=== PATIENT | male | born 1980 | race Caucasian/White ===

== ENCOUNTER 2016-10-24 09:38 | Emergency (ER) | payer SELFPAY ==
--- NOTE | 2016-10-24 10:01 | ER Document Report ---
ED Medical Screen (RME) - General Stated Complaint: BACK/TOOTH PAIN Time seen by provider: 09:58 Mode of Arrival: Ambulatory Information source: Patient Notes: 36-year-old male presents to ED for pain in his upper and lower back after jumping out of the back of a truck yesterday. States she was hurting some yesterday but not as much as today. He states he has numbness down his right arm and feels like he has a "quinault" in the left side of his neck. He states he also has 3 or 4 painful teeth. I have greeted and performed a rapid initial assessment of this patient. A comprehensive ED assessment and evaluation of the patient, analysis of test results and completion of medical decision making process will be conducted by an additional ED providers. - Related Data Allergies/Adverse Reactions: Penicillins Allergy (Verified 10/24/16 09:57) sulfamethoxazole [From Bactrim] Allergy (Verified 10/24/16 09:57) trimethoprim [From Bactrim] Allergy (Verified 10/24/16 09:57)
[2016-10-24] MEDS ORDERED: OXYCODONE-ACETAMINOPHEN 5-325 MG TABLET PO ONE (10:38)
--- NOTE | 2016-10-24 12:02 | ER Document Report ---
HPI - HPI Patient complains to provider of: back pain, dental pain Onset: Other - Back pain started yesterday, dental pain 2 days Quality of pain: Sharp Pain Level: 5 Context: Patient presents complaining of dental pain for the past 2 days. Patient states that yesterday he jumped out of the lifted truck and yuan his back after he landed. Patient complains of back pain since then. Patient denies any fever, urinary symptoms, or weakness to his extremities. Patient denies any radiculopathy. Patient denies any IV drug use. Associated Symptoms: Other - Back pain, dental pain Exacerbated by: Movement, Walking Relieved by: Denies Similar symptoms previously: Yes Recently seen / treated by doctor: No - ROS ROS below otherwise negative: Yes Systems Reviewed and Negative: Yes All other systems reviewed and negative - CONSTITUTIONAL Constitutional: DENIES: Fever - EENT Notes: Dental pain - NEURO Neurology: DENIES: Weakness - CARDIOVASCULAR Cardiovascular: DENIES: Chest pain - GASTROINTESTINAL Gastrointestinal: DENIES: Nausea - URINARY Notes: No incontinence or retention - MUSCULOSKELETAL Musculoskeletal: REPORTS: Back Pain. DENIES: Extremity pain - DERM Skin Color: Normal Skin Problems: None Past Medical History - General Information source: Patient - Social History Smoking Status: Current Every Day Smoker Chew tobacco use (# tins/day): No Frequency of alcohol use: None Drug Abuse: None Lives with: Family Family History: Reviewed & Not Pertinent Patient has suicidal ideation: No Patient has homicidal ideation: No - Medical History Medical History: Negative Renal/ Medical History: Denies: Hx Peritoneal Dialysis Surgical Hx: Negative Vertical Provider Document - CONSTITUTIONAL Agree With Documented VS: Yes Exam Limitations: No Limitations General Appearance: WD/WN, No Apparent Distress Notes: PHYSICAL EXAMINATION: GENERAL: Well-appearing, well-nourished and in no acute distress. HEAD: Atraumatic, normocephalic. EYES: sclera clear, anicteric, conjunctiva are normal. ENT: nares patent, Moist mucous membranes. NECK: Normal range of motion, supple no lymphadenopathy LUNGS: respirations unlabored HEART: Regular rate and rhythm without murmurs EXTREMITIES: Normal range of motion, no pitting or edema. No cyanosis. Gait normal, pt ambulates without difficulty BACK: Thoracic midline tenderness T4-T10 area, lumbar midline tenderness no deformities or step-offs. No CVA tenderness. NEUROLOGICAL: Cranial nerves grossly intact. Normal speech, normal gait. No saddle anesthesia. PSYCH: Normal mood, normal affect. SKIN: Warm, Dry, normal turgor, no rashes or lesions noted. - INFECTION CONTROL TRAVEL OUTSIDE OF THE [place] IN LAST 30 DAYS: No - HEENT Mouth Diagram: 1 - Digital discoloration, no gingival swelling, no fracture 2 - Dental yellow-brown discoloration, tenderness, no fracture, no abscess, no sublingual or submental swelling - RESPIRATORY O2 Sat by Pulse Oximetry: 99 Course - Re-evaluation Re-evalutation: 10/24/16 12:03 Patient presents without any identification or Social Security number per patient access. - Vital Signs Vital signs: Temp Pulse Resp BP Pulse Ox 97.8 F 69 16 136/62 H 99 10/24/16 09:57 10/24/16 09:57 10/24/16 09:57 10/24/16 09:57 10/24/16 09:57 - Diagnostic Test Radiology reviewed: Reports reviewed Discharge - Discharge Clinical Impression: Arthritis, Pain, dental Back strain Qualifiers: Encounter type: initial encounter Qualified Code(s): S39.012A - Strain of muscle, fascia and tendon of lower back, initial encounter Condition: Stable Disposition: HOME, SELF-CARE Instructions: Low Back Pain ([facility]), Oral Narcotic Medication ([facility]), Warm Packs ( [facility]), Toothache ([facility]), Clindamycin ([facility]) Additional Instructions: Return immediately for any new or worsening symptoms Followup with your primary care provider, call tomorrow to make a followup appointment Follow up with a dental care provider Prescriptions: Clindamycin HCl [Cleocin 300 mg Capsule] 300 mg PO TID #21 capsule Oxycodone HCl/Acetaminophen [Percocet 5-325 mg Tablet] 1 - 2 tab PO ASDIR PRN # 12 tablet PRN Reason: Referrals: [facility] [Provider Group] - Follow up as needed [facility] [Provider Group] - Follow up as needed [facility] [Provider Group] - Follow up as needed
[2016-10-24 12:08] VITALS: BP 114/67
== END 2016-10-24 12:16 | disposition home or self-care (01) ==
LOC: ER 09:38
DX: S39.012A Strain of muscle, fascia and tendon of lower back, initial encounter (principal); K08.9 Disorder of teeth and supporting structures, unspecified; M19.90 Unspecified osteoarthritis, unspecified site; X58.XXXA Exposure to other specified factors, initial encounter; F17.200 Nicotine dependence, unspecified, uncomplicated
CPT/HCPCS: 72070; 72110; 99283